=== PATIENT | female | born 1955 | race Caucasian/White ===

== ENCOUNTER → 2016-06-26 | Outpatient (CLI) | payer BC | LOC: GMAL 11:53 | PROVIDERS: ATTEND Family Medicine | DX: Z00.00 Encounter for general adult medical examination without abnormal findings (principal) ==

== ENCOUNTER → 2017-09-09 | Outpatient (CLI) | payer BC | LOC: GMAL 10:48 | PROVIDERS: ATTEND Family Medicine | DX: Z00.01 Encounter for general adult medical examination with abnormal findings (principal) ==

== ENCOUNTER → 2017-09-17 | Outpatient (CLI) | payer BC | END | disposition home or self-care (01) | LOC: MAMMO 14:00 | PROVIDERS: ATTEND Family Medicine | DX: Z12.31 Encounter for screening mammogram for malignant neoplasm of breast (principal) ==

== ENCOUNTER → 2017-10-09 | Outpatient (CLI) | payer BC ==
--- NOTE | 2017-10-10 15:54 | MAM ---
EXAM DESCRIPTION: 3D Diagnostic, Bilateral: Digital Mammography CLINICAL HISTORY: 62 yearsFemaleABN MAMMOGRAM focal asymmetry middle third lower inner quadrant left breast.. COMPARISON: 3-D digital tomosynthesis screening bilateral mammography 09/17/2017.. Report from prior examination also reviewed. TECHNIQUE: Bilateral LM projection full-field images, 3-D tomosynthesis digital mammographic technique. Also bilateral synthesized LM full-field images. CAD not utilized. FINDINGS: The breast parenchymal density pattern is: Scattered areas of fibroglandular density. No skin thickening or nipple retraction bilateral solitary coarse calcifications and solitary microcalcifications. Regions of focal asymmetry not as well-demonstrated on these images. ULTRASOUND: Scanning in 300 clock position 7 cm from the nipple to the nipple. Oval-shaped anechoic object with well-defined well marginated west measuring 4.0 x 3.3 mm. Parallel orientation. Posterior acoustic enhancement. Nonvascular. No distinct solid mass. No large calcifications or parenchymal edema. No overlying skin changes. No abnormal soft tissue vascularity. IMPRESSION: BI-RADS CATEGORY: 2 - BENIGN FINDINGS. FOLLOW UP: Return to routine digital bilateral screening, one year interval from September 2017. Written communication explaining the IMPRESSION and follow-up, will be mailed to the patient and referring health care provider. According to the [employer], yearly mammograms are recommended starting at age 40 and continuing as long as a woman is in good health. Any breast change noted on a breast self-exam should be reported promptly to the patient's healthcare provider. Breast MRI is recommended for women with an approximately 20-25% or greater lifetime risk of breast cancer, including women with a strong family history of breast or ovarian cancer and women who have been treated for Hodgkin's disease. A negative mammographic report should not delay tissue diagnosis in patients with significant clinical history or physical findings. Extremely dense breast tissue limits the sensitivity of digital mammography. Electronically signed by: Sarabjit Duval MD 10/10/2017 3:53 PM CDT
--- NOTE | 2017-10-10 15:55 | US ---
EXAM DESCRIPTION: Breast,Left: Ultrasound CLINICAL HISTORY: 62 yearsFemaleABN SCREEN. Focal asymmetry left breast. COMPARISON: Digital diagnostic 3-D tomosynthesis bilateral mammography on this visit. Bilateral 3-D tomosynthesis screening study 09/17/2017. TECHNIQUE: Transcutaneous scanning of the left breast utilizing two-dimensional and Doppler modes. Scanning performed by the boiler washer and Dr. Duval. FINDINGS: Scanning in 300 clock position 7 cm from the nipple to the nipple. Oval-shaped anechoic object with well-defined well marginated west measuring 4.0 x 3.3 mm. Parallel orientation. Posterior acoustic enhancement. Nonvascular. No distinct solid mass. No large calcifications or parenchymal edema. No overlying skin changes. No abnormal soft tissue vascularity. IMPRESSION: 1. Bi-Rads Category 2: Benign. 2. Please refer to diagnostic bilateral 3-D tomosynthesis mammographic examination and report on this visit. The FINDINGS and the FOLLOW-UP plan were reviewed in person with the patient after the examination. Written communication explaining the IMPRESSION and FOLLOW-UP will be mailed to the patient and referring care provider. Electronically signed by: Sarabjit Duval MD 10/10/2017 3:53 PM CDT
== END ==
LOC: MAMMO 10:07
PROVIDERS: ATTEND Family Medicine
DX: R92.8 Other abnormal and inconclusive findings on diagnostic imaging of breast (principal)
CPT/HCPCS: 76641; 77066; G0279

== ENCOUNTER → 2019-10-18 | Outpatient (CLI) | payer MEDICARE, OTHER | LOC: GMAL 11:35 | PROVIDERS: ATTEND Family Medicine | DX: D51.3 Other dietary vitamin B12 deficiency anemia (principal); I10 Essential (primary) hypertension; E78.49 Other hyperlipidemia; R53.83 Other fatigue; E55.9 Vitamin D deficiency, unspecified ==